=== PATIENT | female | born 2005 | race African-American/Black ===

== ENCOUNTER 2025-08-18 06:57 | Emergency (ER) | payer OTHER, SELFPAY ==
--- NOTE | ~2025-08-18 | XR_ITS ---
EXAMINATION: XR CHEST CLINICAL INFORMATION: vomiting rule out aspiration COMPARISON: None available. TECHNIQUE: 2 views of the chest were obtained. FINDINGS: The cardiac, hilar, and mediastinal contours are normal. The lungs are clear bilaterally. There is no pneumothorax or pleural effusion. There is no focal osseous or soft tissue abnormality. XR/XR chest 2V IMPRESSION: Normal chest. Electronically signed by: Keenan Mejia MD 08/18/2025 08:49 AM [facility]
[2025-08-18 07:09] VITALS: BP 139/78; PULSE 95; RESP 20; TEMP 36.7; O2SAT 95; BMI 41.6
--- NOTE | 2025-08-18 07:32 | ED_ITS ---
HPI - General Adult General Chief complaint: General Medical Stated complaint: abd pain / nauseous Time Seen by Provider: 08/18/25 07:30 Source: patient, RN notes reviewed and old records reviewed Mode of arrival: ambulatory Limitations: no limitations History of Present Illness ED Provider: Peace Hardy PA-C HPI narrative: Jignesh is a 20-year-old female who presents to the ED with approximately one week of lower abdominal pain, headaches, nausea, and nighttime vomiting. Abdominal pain began last Monday or Monday (9?10 days ago), initially left- sided in the suprapubic region and later becoming more diffuse, described as crampy with occasional ?fluttering? sensations. Symptoms occur daily, primarily at night; she reports nausea even when pain is absent and notes that eating worsens the nausea but does not cause pain. Vomiting is non-bloody, confined to nighttime, and began after one episode of diarrhea on 08/12; no ongoing diarrhea since. She endorses dizziness accompanying headaches, a ?trembling? sensation with the headaches, and increased urinary frequency. She also reports increased milky-white, non-odorous, non-pruritic vaginal discharge. She denies dysuria but is concerned about possible and requested urine and blood testing. She tried ibuprofen and Pepto-Bismol without relief. No sick contacts, fever, chills, sore throat, head injury, or alcohol use. Does endorse a cough. Review of Systems: - General: Denies fever, chills. - HEENT: Positive for headaches; denies sore throat, head injury. - Respiratory: Positive for cough; denies shortness of breath. - Cardiovascular: No complaints mentioned. - Gastrointestinal: Positive for lower abdominal pain, nausea, nighttime vomiting; one episode of diarrhea 08/12, resolved; denies hematemesis, pain with eating. - Genitourinary: Positive for increased urinary frequency; denies dysuria or hematuria. - Gynecologic: Positive for increased milky-white vaginal discharge without odor or itching; concern. Reports two prior pregnancies, both lost. - Neurologic: Positive for dizziness, ?trembling? sensation with headache. Related Data Previous Rx's ?Medication ?Instructions ?Recorded metronidazole 500 mg tablet 500 mg PO BID #14 tabs Allergies Allergy/AdvReac Type Severity Reaction Status Date / Time No Known Allergies Allergy Verified 08/18/25 07:12 Review of Systems 2 Review of Systems: Yes all other systems are reviewed and are negative PMFSH Past Medical History Attestation statement: The following information was validated with the patient. Source: old records reviewed and nursing notes reviewed Physical Exam ED Exam Exam: * General: Denies fever, chills. * HEENT: Positive for headaches; denies sore throat, head injury. * Respiratory: Positive for cough; denies shortness of breath. * Cardiovascular: No complaints mentioned. * Gastrointestinal: Positive for lower abdominal pain, nausea, nighttime vomiting; one episode of diarrhea 08/12, resolved; denies hematemesis, pain with eating. * Genitourinary: Positive for increased urinary frequency; denies dysuria or hematuria. Mild suprapubic tenderness. * Gynecologic: Positive for increased milky-white vaginal discharge without odor or itching; concern. Reports two prior pregnancies, both lost. * Neurologic: Positive for dizziness, ?trembling? sensation with headache. Vital Signs: Vital Signs - 24 hr 08/18/25 07:09 Temperature 98.1 F Pulse Rate 95 Respiratory Rate 20 Blood Pressure 139/78 Pulse Oximetry 95 Oxygen Delivery Method Room Air BMI result Body Mass Index 41.6 Medical Decision Making Medical Decision Making MDM Narrative: 20-year-old female with one week of nighttime abdominal pain, nausea/vomiting, headache, dizziness, and increased vaginal discharge. ED work-up including labs, UA, testing, and chest X-ray is overall benign and reassuring. DDX: vaginitis, STI, , dehydration, UTI Problem #1: Abdominal pain with associated nausea/vomiting Assessment: Crampy lower abdominal pain with nightly nausea and vomiting. Work-up negative for metabolic, infectious, or structural cause; ruled out. Patient hemodynamically stable. Plan: - Symptomatic care provided in ED. - Recommend outpatient GI follow-up for persistent symptoms. - Return precautions for worsening pain, persistent vomiting, inability to tolerate PO intake, or new symptoms. Problem #2: Increased vaginal discharge ? possible bacterial vaginosis Assessment: Milky-white, non-odorous discharge without itching; pending vaginal panel. Empiric treatment for possible BV initiated. Plan: - Empiric BV therapy planned. - Finalize treatment once vaginal panel results available; patient will be contacted with results. - OBGYN contact information to be provided for follow-up. Problem #3: Headache Assessment: Temporal relationship with abdominal symptoms; no focal neurologic deficits; afebrile; no head injury. Plan: - Symptomatic management as needed. - Return if severe, persistent, or associated with neurologic changes. Problem #4: Dizziness Assessment: Occurs with headaches; vitals stable; labs unremarkable; likely multifactorial (dehydration vs. associated with nausea/vomiting). Plan: - Encouraged adequate oral hydration. - Return for worsening dizziness, syncope, or new neurologic symptoms. - 20-year-old female presenting with one week of headache, lower abdominal pain, vomiting, dizziness, and increased vaginal discharge. Differential diagnosis included , infectious gastroenteritis, pelvic inflammatory disease, urinary tract infection, and bacterial vaginosis. Comprehensive workup included CBC, CMP, urinalysis, urine and serum testing, chest X-ray, and vaginal pathogen panel, all of which were reassuring with no evidence of anemia, leukocytosis, metabolic derangement, or . Physical examination revealed a benign, non-tender abdomen without peritoneal signs and no costovertebral angle tenderness. Vaginal pathogen panel confirmed bacterial vaginosis. Patient was treated with appropriate antibiotic therapy per CDC guidelines for bacterial vaginosis. Given benign workup, hemodynamic stability, ability to tolerate oral intake, and appropriate outpatient treatment initiated, patient was deemed safe for discharge with close outpatient follow-up instructions, return precautions for worsening symptoms, and plan for OBGYN follow-up for confirmed bacterial vaginosis. Differential Diagnosis Differential Diagnoses: The differential diagnosis associated with the presentation includes see [facility] Admission/Observation Consideration of admission/observation: Escalation of care including admission/observation considered Lab Data [facility] Lab Attestation statement: I reviewed the patient's lab results. * CBC: No anemia or leukocytosis. * UA: Mildly increased specific gravity consistent with mild dehydration; otherwise unremarkable. * Urine & serum hCG: Negative. * Vaginal pathogen panel: Pending. 08/18/25 08:05 08/18/25 08:05 Labs: Lab Results 08/18/25 08/18/25 08/18/25 Range/Units 07:24 08:05 08:06 WBC 10.0 (4.8-10.8) X10*3/uL RBC 4.75 (4.20-5.50) X10*6/uL Hgb 11.9 L (12.0-16.0) g/dl Hct 38.8 (37.0-47.0) % MCV 81.7 (80.0-98.0) fL MCH 25.1 L (27.0-33.0) pg MCHC 30.7 L (31.0-35.0) g/dl RDW 12.7 (11.0-16.0) % Plt Count 311 (160-400) X10*3/uL MPV 8.6 L (9.4-12.3) fL Immature Gran % (Auto) 0.4 (0.0-0.4) % Neut % (Auto) 66.4 (45-73) % Lymph % (Auto) 26.5 (20-40) % Hill % (Auto) 5.3 (2-11) % Eos % (Auto) 0.9 (0-4) % Baso % (Auto) 0.5 (0-2) % Lymph # (Auto) 2.6 (1.2-4.9) X10*3/uL Hill # (Auto) 0.5 (0.1-1.2) X10*3/uL Eos # (Auto) 0.1 (0.0-0.4) X10*3/uL Baso # (Auto) 0.1 (0.0-0.2) X10*3/uL Abs Immat Gran (auto) 0.04 H (0.00-0.03) X10*3/uL Absolute Neuts (auto) 6.6 (2.0-8.3) x10*3/uL Absolute Nucleated RBC 0.000 (0.0-0.012) X10*3/uL Nucleated RBC % (auto) 0.0 (0.0-0.2) /100WBC Sodium 140 (135-145) mmol/L Potassium 4.0 (3.3-5.1) mmol/L Chloride 106 (96-108) mmol/L Carbon Dioxide 28 (22-29) mmol/L Anion Gap 10 L (12-20) BUN 10 (9-16) mg/dL Creatinine 0.75 (0.5-1.4) mg/dL Estim Creat Clear Calc 153.0 Estimated GFR > 60 Random Glucose 127 H (60-115) mg/dL Calcium 8.9 (8.4-10.2) mg/dL Magnesium 2.0 (1.6-2.6) mg/dL Total Bilirubin 0.2 (0.0-1.0) mg/dL AST 23 (5-31) U/L ALT 19 (0-31) U/L Alkaline Phosphatase 103 (39-117) U/L Total Protein 8.4 H (6.5-8.0) g/dL Albumin 4.0 (3.5-5.0) g/dL Lipase 64 (8-78) U/L Urine Color Yellow Urine Appearance Clear Urine pH 5.5 (5.0-9.0) Ur Specific [place] >= 1.030 H (1.005-1.025) Urine Protein Negative (Neg-Trace) mg/dL Urine Glucose (UA) Negative (Negative) mg/dL Urine Ketones Negative (Negative) mg/dL Urine Blood Negative (Negative) Urine Nitrite Negative (Negative) Ur Leukocyte Esterase Negative (Negative) Urine Test NEGATIVE (NEGATIVE) Chlam trachomat DNA PCR NOT DETECTED (Not Detect.) Influenza Type A (PCR) NEGATIVE (Negative) Influenza Type B (PCR) NEGATIVE (Negative) N.gonorrhoeae DNA (PCR) NOT DETECTED (Not Detect.) RSV RNA Qual (PCR) NEGATIVE (Negative) SARS-CoV-2 RNA (RT-PCR) NEGATIVE (Negative) T. vaginalis (PCR) NOT DETECTED (Not Detect) Bact vaginosis (PCR) POSITIVE A (Negative) C. krusei/glabrata (PCR) NOT DETECTED (Not Detect) [place] group (PCR) NOT DETECTED (Not Detect) Independent Interpretation I performed an independent interpretation of an: Plain X-Ray Interpretation: no pna Radiology Impression Discussion of test interpretation with radiology: I have reviewed the radiologist's reading. Tests considered The following testing was considered but not selected: See MDM Prescription Management I considered prescription management with: Antibiotic Chronic Conditions Patient?s care impacted by: Other Social Determinants Patient?s care significantly limited by Social Determinants of Health including: Problems related to primary support group and Other Social Determinant of Health Discharge Plan Discharge Clinical Impression: Vaginitis, Abdominal pain, Nausea & vomiting Patient Disposition: Home, Self-Care Instructions: Bacterial Vaginosis (ED) Additional Instructions: Date of Visit: August 18, 2025 Provider: Peace Hardy PA-C You came to the emergency department because you've had headaches, lower belly pain, vomiting, and dizziness for about one week. You also noticed increased vaginal discharge. What We Found: We performed a thorough evaluation including blood tests, urine tests, tests, and a chest X-ray. All of these tests came back normal and reassuring. Your tests were negative. We also collected a vaginal sample to test for infections, and those results are still pending. What We Think Is Going On: Your symptoms appear to be related to a stomach issue that should improve with time and supportive care. The increased vaginal discharge may be due to a common vaginal infection called bacterial vaginosis, so we started you on treatment for this while we wait for your test results. Treatment and Next Steps: - We are starting you on medication for possible bacterial vaginosis - We will call you with your vaginal test results and adjust your treatment if needed - Drink plenty of fluids and eat small, frequent meals - Rest and avoid foods that make your nausea worse - Follow up with your primary care doctor or a director [employer] commission within the next week When to Return to the Emergency Department: Please come back to the emergency department or call 911 if you experience: - Severe or worsening belly pain - Vomiting that won't stop or inability to keep down liquids - Fever over 100.4?F - Severe headache or dizziness that gets worse - Fainting or passing out - Vaginal bleeding - Any new or concerning symptoms Follow-Up: - Contact information for OBGYN follow-up will be provided - Schedule an appointment with your primary care doctor within 1 week - We will contact you with your vaginal test results If you have any questions or concerns, please don't hesitate to call us or seek medical attention. Prescriptions: New metronidazole 500 mg tablet 500 mg PO BID Qty: 14 0RF Referrals: [facility] [place] Group] Clinical Impression: Vaginitis Stand Alone Forms: Work/School Release Interventions: ED Discharge Assessment Last Done: 08/18/25 10:56 Discharge Date/Time: 08/18/25 11:07 Print Language: [place]i
[2025-08-18 08:11] LABS: Resp Syncy Virus RNA Qual PCR NEGATIVE (Negative); SARS COV2 PCR INHOUSE NEGATIVE (Negative)
[2025-08-18 08:20] LABS: MANUAL DIFF FLAG NO
[2025-08-18 08:25] LABS: Hematocrit 38.8 % (37.0-47.0); Hemoglobin 11.9 g/dl (12.0-16.0); Imm Gran Abs Auto 0.04 X10*3/uL (0.00-0.03); Imm Gran Pct Auto 0.4 % (0.0-0.4); Lymphocytes Absolute Auto 2.6 X10*3/uL (1.2-4.9); Mean Corpuscular HGB Conc 30.7 g/dl (31.0-35.0); Mean Corpuscular Hemoglobin 25.1 pg (27.0-33.0); Mean Corpuscular Volume 81.7 fL (80.0-98.0); NRBC Abs Auto 0.000 X10*3/uL (0.0-0.012); NRBC Pct Auto 0.0 /100WBC (0.0-0.2); Platelet Count 311 X10*3/uL (160-400); Red Blood Count 4.75 X10*6/uL (4.20-5.50); White Blood Count 10.0 X10*3/uL (4.8-10.8)
[2025-08-18 08:26] LABS: Appearance Urine Clear; Glucose Urine UA Negative (Negative); PH 5.5 (5.0-9.0); Specific Gravity - Urine >= 1.030 (1.005-1.025)
[2025-08-18 08:28] LABS: UPreg QC Valid YES
[2025-08-18 08:38] LABS: Alanine Aminotransferase 19 U/L (0-31); Albumin Level 4.0 g/dL (3.5-5.0); Alkaline Phosphatase 103 U/L (39-117); Anion Gap 10 (12-20); Aspartate Amino Transferase 23 U/L (5-31); Blood Urea Nitrogen 10 mg/dL (9-16); Calcium 8.9 mg/dL (8.4-10.2); Carbon Dioxide 28 mmol/L (22-29); Chloride 106 mmol/L (96-108); Creatinine Clr Calc Pharmacy 153.0; Estimated Glomerular Filt Rate > 60; Lipase 64 U/L (8-78); Magnesium 2.0 mg/dL (1.6-2.6); Potassium 4.0 mmol/L (3.3-5.1); Sodium 140 mmol/L (135-145); Total Protein 8.4 g/dL (6.5-8.0)
[2025-08-18 10:56] VITALS: BP 139/78; PULSE 95; RESP 20; TEMP 36.7; O2SAT 95
[2025-08-18 11:00] LABS: Bacterial Vaginosis PCR POSITIVE (Negative); Candida Group PCR NOT DETECTED (Not Detect); Candida glab krusei PCR NOT DETECTED (Not Detect); Trichomonas vaginalis PCR NOT DETECTED (Not Detect)
[2025-08-18 11:30] LABS: CT PCR NOT DETECTED (Not Detect.); NG PCR NOT DETECTED (Not Detect.)
== END 2025-08-18 11:07 | disposition home or self-care (01) ==
PROVIDERS: Physician Assistant Medical; Emergency Provider Emergency Medicine
DX: N76.0 Acute vaginitis (principal); R11.2 Nausea with vomiting, unspecified; R10.30 Lower abdominal pain, unspecified; R42 Dizziness and giddiness; R51.9 Headache, unspecified; R35.0 Frequency of micturition; R05.9 Cough, unspecified; Z03.818 Encounter for observation for suspected exposure to other biological agents ruled out
CPT/HCPCS: 36415; 71046; 80053; 81003; 81025; 81515; 83690; 83735; 85025; 87491; 87591; 87637; 99282; 99283

== ENCOUNTER → 2025-08-18 07:50 | Outpatient (BNV) | payer OTHER, SELFPAY | PROVIDERS: Emergency Provider Emergency Medicine; Visit Provider Radiology Diagnostic Radiology | DX: R11.10 Vomiting, unspecified (principal) | CPT/HCPCS: 71046 ==